=== PATIENT | male | born 1995 | race Caucasian/White ===

== ENCOUNTER 2019-05-16 12:50 | Emergency (ER) | payer SELFPAY ==
[~2019-05-16] VITALS: Ht 180.3 cm; Wt 99.8 kg
[2019-05-16 12:57] VITALS: BP 127/76
--- NOTE | 2019-05-16 12:59 | NUR ---
TRIAGE COMPLETE. VSS. RETURNED TO LOBBY AWAITNG BED IN ED.
--- NOTE | 2019-05-16 13:06 | NUR ---
PT IN WHEELCHAIR TO RADIOLOGY
--- NOTE | 2019-05-16 13:12 | NUR ---
PT RETURNED TO LOBBY VIA WHEELCHAIR TO WAIT FOR BED
--- NOTE | 2019-05-16 13:25 | NUR ---
PT TAKEN TO CHAIR B
[2019-05-16 13:31] VITALS: BP 127/76
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
--- NOTE | 2019-05-16 14:03 | NUR ---
Patient discharged with v/s stable. Written and verbal after care instructions given and explained. Patient verbalized understanding. Ambulatory with steady gait. All questions addressed prior to discharge. Advised to follow up with PMD.
== END 2019-05-16 14:03 | disposition home or self-care (01) ==
LOC: MED 12:50
DX: S43.401A Unspecified sprain of right shoulder joint, initial encounter (principal); X58.XXXA Exposure to other specified factors, initial encounter; Y93.66 Activity, soccer; Y92.89 Other specified places as the place of occurrence of the external cause; Y99.8 Other external cause status
CPT/HCPCS: 73030; 99283